=== PATIENT | female | born 1960 | race African-American/Black ===

== ENCOUNTER 2022-04-09 16:08 | Emergency (ER) | payer OTHER ==
[~2022-04-09] VITALS: Ht 172.7 cm; Wt 87.0 kg
[~2022-04-09 16:08] MED LIST: AMLO10TA80 PO; CARV6.2548 MT; FURO-151 MT; HYDR100T26 PO; LOSA100T3 PO
[2022-04-09 16:15] VITALS: BP 142/96
== END 2022-04-09 20:56 | disposition home or self-care (01) ==
LOC: ER 16:08
DX: I89.0 Lymphedema, not elsewhere classified (principal); G89.29 Other chronic pain; F17.290 Nicotine dependence, other tobacco product, uncomplicated; Z79.899 Other long term (current) drug therapy
CPT/HCPCS: 99283

== ENCOUNTER 2022-04-14 18:11 | Emergency (ER) | payer OTHER ==
[~2022-04-14] VITALS: Ht 170.2 cm; Wt 61.0 kg
[2022-04-14 18:17] VITALS: BP 152/86
[2022-04-14] MEDS ORDERED: CEPH500C2 MT (23:24)
== END 2022-04-15 01:41 | disposition home or self-care (01) ==
LOC: ER 18:11
DX: S90.821A Blister (nonthermal), right foot, initial encounter (principal); X58.XXXA Exposure to other specified factors, initial encounter; Y93.01 Activity, walking, marching and hiking; Y92.9 Unspecified place or not applicable; I11.0 Hypertensive heart disease with heart failure; I50.9 Heart failure, unspecified; Z86.73 Personal history of transient ischemic attack (TIA), and cerebral infarction without residual deficits
CPT/HCPCS: 99283

== ENCOUNTER 2022-06-28 15:01 | Inpatient (IN) | payer OTHER ==
[~2022-06-28] VITALS: Ht 165.1 cm; Wt 64.0 kg
[~2022-06-28 15:01] MED LIST changes: +CEPH500C2 MT
[2022-06-28] MEDS ORDERED: ONDANSETRON HCL 4MG/2ML INJ IV STA (15:32)
[2022-06-28] MEDS ORDERED: LABETALOL HCL VIAL 20 MG/4 ML VIAL IV ONE (15:45)
[2022-06-28] MEDS ORDERED: ONDANSETRON HCL 4MG/2ML INJ IV NR (17:30)
[2022-06-28] MEDS ORDERED: LABETALOL 5MG/ML SYR 20 MG/4 ML SYRINGE IV NR (17:30)
[2022-06-28 17:36] LABS: CHLORIDE 107 mEq/L (98-107)
[2022-06-28 17:47] LABS: BASOPHILS % 0.6 % (0.0-2.0); EOSINOPHILS % 0.1 % (0.0-5.0); HEMATOCRIT. 34.9 % (36.0-48.0); HEMOGLOBIN. 11.2 g/dL (12.0-16.0); LYMPHOCYTES % 12.2 % (20.0-50.0); MEAN CORPUSCULAR HEMOGLOBIN 23.3 pg (28.0-32.0); MEAN CORPUSCULAR VOLUME 72.7 fL (81.0-99.0); MEAN PLATELET VOLUME 9.3 fl (7.4-10.4); MONOCYTES % 14.9 % (2.0-8.0); NEUTROPHILS % 72.2 % (40.0-76.0); PLATELET 244 x1000/uL (130-400); RED BLOOD CELL COUNT 4.81 mill/uL (4.2-5.4); RED CELL DISTRIBUTION WIDTH 20.1 % (11.6-14.6)
[2022-06-28] MEDS ORDERED: HYDRALAZINE 20MG/ML VIAL IV NR (18:30)
[2022-06-28] MEDS ORDERED: ASPIRIN 325MG EC TABLET PO NR (18:30)
[2022-06-28] MEDS ORDERED: FUROSEMIDE 100MG/10ML VIAL IVP NR (18:45)
[2022-06-28] MEDS ORDERED: CLONIDINE 0.2MG TABLET PO PRN (21:22)
[2022-06-28] MEDS ORDERED: HYDRALAZINE 20MG/ML VIAL IV PRN (21:23)
[2022-06-29] MEDS ORDERED: HYDRALAZINE HCL 100MG TABLET PO SCH (00:15)
[2022-06-29 00:20] VITALS: BP 189/109
[2022-06-29] MEDS ORDERED: CLONIDINE 0.2MG TABLET PO PRN (00:30)
[2022-06-29 03:00] VITALS: BP 190/119
[2022-06-29 04:00] VITALS: BP 141/85
[2022-06-29] MEDS: HYDRALAZINE HCL 100MG TABLET PO SCH ×3 (05:28→21:23)
[2022-06-29 08:00] VITALS: BP 139/83
[2022-06-29 08:13] LABS: BASOPHILS % 0.6 % (0.0-2.0); EOSINOPHILS % 0.4 % (0.0-5.0); HEMATOCRIT. 34.4 % (36.0-48.0); HEMOGLOBIN. 10.8 g/dL (12.0-16.0); LYMPHOCYTES % 22.3 % (20.0-50.0); MEAN CORPUSCULAR HEMOGLOBIN 22.8 pg (28.0-32.0); MEAN CORPUSCULAR VOLUME 72.6 fL (81.0-99.0); MEAN PLATELET VOLUME 9.3 fl (7.4-10.4); MONOCYTES % 12.7 % (2.0-8.0); PLATELET 266 x1000/uL (130-400); RED BLOOD CELL COUNT 4.74 mill/uL (4.2-5.4); RED CELL DISTRIBUTION WIDTH 20.5 % (11.6-14.6)
[2022-06-29] MEDS: FUROSEMIDE 40MG/4ML VIAL IVP SCH ×2 (09:54→18:41)
[2022-06-29] MEDS: AMLODIPINE 10MG TABLET PO SCH (09:55)
[2022-06-29] MEDS: CARVEDILOL 6.25 MG TABLET PO SCH ×2 (09:57→18:40)
[2022-06-29 16:00] VITALS: BP 130/70
[2022-06-29] MEDS: LOSARTAN POTASSIUM 100 MG TABLET PO SCH (18:00)
[2022-06-29] MEDS: ENOXAPARIN 30MG/0.3ML SYR SUBCUT SCH (18:44)
[2022-06-29 20:00] VITALS: BP 120/84
[2022-06-30] VITALS: BP 123/81
[2022-06-30 04:00] VITALS: BP 142/94
[2022-06-30] MEDS: FUROSEMIDE 40MG/4ML VIAL IVP SCH ×2 (05:14→18:28)
[2022-06-30] MEDS: HYDRALAZINE HCL 100MG TABLET PO SCH ×3 (05:15→21:15)
[2022-06-30 08:00] VITALS: BP 147/93
[2022-06-30] MEDS: CARVEDILOL 6.25 MG TABLET PO SCH ×2 (11:08→18:29)
[2022-06-30] MEDS: LOSARTAN POTASSIUM 100 MG TABLET PO SCH (11:08)
[2022-06-30] MEDS: AMLODIPINE 10MG TABLET PO SCH (11:09)
[2022-06-30 12:00] VITALS: BP 138/88
[2022-06-30] MEDS: ENOXAPARIN 30MG/0.3ML SYR SUBCUT SCH (18:29)
[2022-06-30 20:00] VITALS: BP 121/78
[2022-06-30 20:30] VITALS: BP 140/78
[2022-07-01] VITALS: BP 128/80
[2022-07-01 04:00] VITALS: BP 130/78
[2022-07-01] MEDS: HYDRALAZINE HCL 100MG TABLET PO SCH ×3 (05:05→21:02)
[2022-07-01] MEDS: FUROSEMIDE 40MG/4ML VIAL IVP SCH ×2 (05:05→17:00)
[2022-07-01 08:00] VITALS: BP 136/77
[2022-07-01] MEDS: LOSARTAN POTASSIUM 100 MG TABLET PO SCH (08:27)
[2022-07-01] MEDS: CARVEDILOL 6.25 MG TABLET PO SCH ×2 (08:28→16:55)
[2022-07-01] MEDS: AMLODIPINE 10MG TABLET PO SCH (08:28)
[2022-07-01 11:41] VITALS: BP 125/77
[2022-07-01 15:49] VITALS: BP 122/71
[2022-07-01] MEDS: ENOXAPARIN 30MG/0.3ML SYR SUBCUT SCH (16:55)
[2022-07-01 20:00] VITALS: BP 141/85
[2022-07-02] VITALS: BP 139/84
[2022-07-02 05:00] VITALS: BP 141/82
[2022-07-02] MEDS: HYDRALAZINE HCL 100MG TABLET PO SCH ×3 (05:13→21:15)
[2022-07-02] MEDS: FUROSEMIDE 40MG/4ML VIAL IVP SCH ×2 (05:14→17:01)
[2022-07-02 08:00] VITALS: BP 132/81
[2022-07-02] MEDS: AMLODIPINE 10MG TABLET PO SCH (08:48)
[2022-07-02] MEDS: LOSARTAN POTASSIUM 100 MG TABLET PO SCH (08:48)
[2022-07-02] MEDS: CARVEDILOL 6.25 MG TABLET PO SCH ×2 (08:48→17:01)
[2022-07-02 11:47] VITALS: BP 141/88
[2022-07-02 16:00] VITALS: BP 120/84
[2022-07-02] MEDS: ENOXAPARIN 30MG/0.3ML SYR SUBCUT SCH (17:01)
[2022-07-02 20:00] VITALS: BP 121/76
[2022-07-03] VITALS: BP 125/70
[2022-07-03 04:00] VITALS: BP 115/86
[2022-07-03] MEDS: FUROSEMIDE 40MG/4ML VIAL IVP SCH (05:08)
[2022-07-03] MEDS: HYDRALAZINE HCL 100MG TABLET PO SCH ×2 (05:09→14:00)
[2022-07-03 08:00] VITALS: BP 138/86
[2022-07-03] MEDS: LOSARTAN POTASSIUM 100 MG TABLET PO SCH (09:36)
[2022-07-03] MEDS: AMLODIPINE 10MG TABLET PO SCH (09:37)
[2022-07-03] MEDS: CARVEDILOL 6.25 MG TABLET PO SCH (09:37)
[2022-07-03 10:17] VITALS: BP 138/86
[2022-07-03 10:26] VITALS: BP 138/86
[2022-07-03 12:00] VITALS: BP 127/80
== END 2022-07-03 15:00 | disposition home or self-care (01) | DRG 194 ==
LOC: ER 15:01 → 8WST 18:51 → EDBEDREQTM 19:01 → EDBEDREQ 19:01 → ENRESERV 20:16
PROVIDERS: ADMIT Internal Medicine; ATTEND Internal Medicine
DX: I13.0 Hypertensive heart and chronic kidney disease with heart failure and stage 1 through stage 4 chronic kidney disease, or unspecified chronic kidney disease (principal); N17.9 Acute kidney failure, unspecified; E44.0 Moderate protein-calorie malnutrition; D63.1 Anemia in chronic kidney disease; I43 Cardiomyopathy in diseases classified elsewhere; I16.0 Hypertensive urgency; I50.23 Acute on chronic systolic (congestive) heart failure; I16.1 Hypertensive emergency; Z20.822 Contact with and (suspected) exposure to COVID-19; N18.9 Chronic kidney disease, unspecified; Z86.73 Personal history of transient ischemic attack (TIA), and cerebral infarction without residual deficits; Z79.899 Other long term (current) drug therapy; Z68.23 Body mass index [BMI] 23.0-23.9, adult
CPT/HCPCS: 36415; 71045; 80048; 80053; 83880; 84484; 85025; 87426; 93005; 93306; 97162; 99291; J0360; J1650; J1940; J2405; J3490